=== PATIENT | male | born 2000 | race African-American/Black ===

== ENCOUNTER 2021-05-28 11:30 | Emergency (ER) | payer SELFPAY ==
[2021-05-28 11:48] VITALS: BP 135/78; PULSE 99; TEMP 97.8; BMI 22.9
[2021-05-28] MEDS ORDERED: PENICILLIN G BENZATHINE 2,400,000 UNIT/4 ML PFS IM ONE (12:30)
[2021-05-28] MEDS ORDERED: PENICILLIN G BENZATHINE 2,400,000 UNIT/4 ML PFS ONE (14:12)
[2021-05-29 22:27] LABS: HIV INTERPRETATION NEGATIVE (NEGATIVE)
[2021-05-29 22:45] LABS: SYPHILIS W/ RPR CONF REACTIVE (NONREACTIVE)
== END 2021-05-28 14:23 | disposition home or self-care (01) ==
LOC: JERFT 11:30
DX: Z11.3 Encounter for screening for infections with a predominantly sexual mode of transmission (principal); Z20.2 Contact with and (suspected) exposure to infections with a predominantly sexual mode of transmission
CPT/HCPCS: 36415; 86593; 86780; 87389; 87491; 87591; 99284-25